=== PATIENT | female | born 2000 | race Asian ===

== ENCOUNTER 2020-09-10 17:56 | Emergency (ER) | payer BC ==
[~2020-09-10] VITALS: Ht 157.5 cm; Wt 54.4 kg
[2020-09-10 18:04] VITALS: BP 124/91
[2020-09-10] MEDS ORDERED: KETOROLAC 30 MG/ML VIAL IM ONE (18:40)
[2020-09-10] MEDS ORDERED: NEOM1OIN15 TP (20:52)
[2020-09-10 20:55] VITALS: BP 117/72
== END 2020-09-10 20:55 | disposition home or self-care (01) ==
LOC: MED 17:56
DX: J34.89 Other specified disorders of nose and nasal sinuses (principal); Z79.899 Other long term (current) drug therapy
CPT/HCPCS: 70160; 96372; 99283; J1885